=== PATIENT | female | born 1980 | race Caucasian/White ===

== ENCOUNTER 2017-02-17 12:19 | Inpatient (IN) | payer OTHER ==
[~2017-02-17] VITALS: Ht 162.6 cm; Wt 54.0 kg
[2017-02-17 12:20] VITALS: BP 144/105
[2017-02-17 13:38] LABS: URINE BILIRUBIN 1+ (Negative); URINE BLOOD 3+ (Negative); URINE COLOR YELLOW; URINE GLUCOSE-RANDOM* NEGATIVE (Negative); URINE KETONES 1+ (Negative); URINE LEUKOCYTES-REFLEX NEGATIVE (Negative); URINE PROTEIN (DIPSTICK) 1+ (Negative); URINE SPECIFIC GRAVITY >= 1.030 (1.003-1.035)
[2017-02-17] MEDS ORDERED: UNICOMPLEX M TA1 TA1 PO (13:39)
[2017-02-17] MEDS ORDERED: MAGNESIUM250 M1 PO (13:39)
[2017-02-17 13:40] LABS: ICTOTEST (BILI CONFIRMATORY) Negative (Negative)
[2017-02-17 13:47] LABS: SQUAMOUS >10 Many /LPF (0-3)
[2017-02-17 13:48] LABS: CASTS None Seen /LPF (None Seen); CRYSTALS None Seen /LPF (None Seen); URINE WBC-REFLEX 0-5 Rare /HPF (0-5)
[2017-02-17 13:53] LABS: ABSOLUTE NEUTROPHILS 5.6 thou/uL (1.4-8.2); BASOPHILS 0.8 % (0.0-2.0); EOSINOPHILS 1.3 % (0.0-3.0); HEMATOCRIT 43.8 % (37.0-47.0); LYMPHOCYTES 17.8 % (24.0-44.0); MANUAL DIFF NO; MCH 35.2 pg (26.0-34.0); MCHC 34.2 g/dL (28.0-37.0); MONOCYTES 5.4 % (1.0-8.0); PLATELET COUNT 292 thou/uL (150-400); POLYS 74.7 % (36.0-66.0); RBC 4.25 mil/uL (4.20-5.00); RDW 16.6 % (10.5-14.5); WBC 7.5 thou/uL (4.0-11.0)
[2017-02-17 14:01] LABS: CALCIUM 8.9 mg/dL (8.5-10.1); CREATININE 0.6 mg/dL (0.6-1.0); POTASSIUM 3.8 mmol/L (3.5-5.1)
[2017-02-17 14:06] LABS: ALBUMIN 3.8 g/dL (3.4-5.0); TOTAL BILIRUBIN 1.1 mg/dL (<0.1-1.0); TOTAL PROTEIN 7.6 g/dL (6.4-8.2)
[2017-02-17 14:14] LABS: AMP/METHAMP POSITIVE (Negative); BARBITURATES Negative (Negative); BENZODIAZEPINES POSITIVE (Negative); COCAINE Negative (Negative); METHADONE Negative (Negative); OPIATES Negative (Negative); PCP Negative (Negative); THC Negative (Negative)
[2017-02-17 14:37] VITALS: BP 163/116
[2017-02-17 16:00] LABS: FOLIC ACID 4.1 ng/mL (8.6-58.9)
[2017-02-17 19:11] VITALS: BP 138/94
[2017-02-17 23:06] LABS: FREE T4 0.94 ng/dL (0.82-1.77)
[2017-02-18] VITALS: BP 141/106
[2017-02-18 03:45] VITALS: BP 138/94
[2017-02-18 07:00] VITALS: BP 146/102
[2017-02-18 07:19] LABS: HEMATOCRIT 41.7 % (37.0-47.0); HEMOGLOBIN 13.9 gm/dL (12.0-15.0); MCH 34.8 pg (26.0-34.0); MCHC 33.2 g/dL (28.0-37.0); RBC 3.98 mil/uL (4.20-5.00); RDW 16.6 % (10.5-14.5); WBC 7.2 thou/uL (4.0-11.0)
[2017-02-18 07:28] LABS: CALCIUM 8.5 mg/dL (8.5-10.1); CREATININE 0.6 mg/dL (0.6-1.0); POTASSIUM 3.7 mmol/L (3.5-5.1)
[2017-02-18 15:53] VITALS: BP 156/105
[2017-02-18 20:00] VITALS: BP 145/100
[2017-02-19 04:00] VITALS: BP 144/97
[2017-02-19 04:11] LABS: ABSOLUTE NEUTROPHILS 2.4 thou/uL (1.4-8.2); BASOPHILS 0.7 % (0.0-2.0); EOSINOPHILS 4.3 % (0.0-3.0); HEMATOCRIT 38.2 % (37.0-47.0); HEMOGLOBIN 13.4 gm/dL (12.0-15.0); LYMPHOCYTES 37.6 % (24.0-44.0); MCH 35.9 pg (26.0-34.0); MCHC 34.9 g/dL (28.0-37.0); MCV 102.7 fL (80.0-100.0); MONOCYTES 7.6 % (1.0-8.0); POLYS 49.8 % (36.0-66.0); RBC 3.72 mil/uL (4.20-5.00); RDW 16.4 % (10.5-14.5); WBC 4.9 thou/uL (4.0-11.0)
[2017-02-19 04:16] LABS: MANUAL DIFF NO
[2017-02-19 04:28] LABS: ALBUMIN 3.3 g/dL (3.4-5.0); CALCIUM 8.3 mg/dL (8.5-10.1); CREATININE 0.4 mg/dL (0.6-1.0); MAGNESIUM 1.3 mg/dL (1.8-2.4); POTASSIUM 3.9 mmol/L (3.5-5.1); TOTAL BILIRUBIN 1.1 mg/dL (<0.1-1.0); TOTAL PROTEIN 6.2 g/dL (6.4-8.2)
[2017-02-19 04:50] LABS: PLATELET COUNT 162 thou/uL (150-400)
[2017-02-19 07:18] VITALS: BP 139/103
== END 2017-02-19 10:42 | disposition left against medical advice (07) | DRG 440 ==
LOC: ER 12:19 → 3N 14:18 → EROBS 14:18 → 3N 14:33
PROVIDERS: Family Medicine; Physician Assistant
DX: K85.90 Acute pancreatitis without necrosis or infection, unspecified (principal); F17.210 Nicotine dependence, cigarettes, uncomplicated; F10.10 Alcohol abuse, uncomplicated; R74.0 Nonspecific elevation of levels of transaminase and lactic acid dehydrogenase [LDH]; Z53.21 Procedure and treatment not carried out due to patient leaving prior to being seen by health care provider; Y90.0 Blood alcohol level of less than 20 mg/100 ml; Z88.4 Allergy status to anesthetic agent; Z71.6 Tobacco abuse counseling
CPT/HCPCS: 10096